=== PATIENT | female | born 1960 | race Caucasian/White ===

== ENCOUNTER → 2024-05-22 | Outpatient (CLI) | payer OTHER, SELFPAY ==
[2024-05-22 08:53] LABS: Basophils % (Auto) 0 % (0-2.5); Eosinophils # (Auto) 0.2 Thou/mm3 (0.0-0.5); Eosinophils % (Auto) 2 % (0-10); Hematocrit 34.9 % (36.0-46.0); Hemoglobin 11.6 g/dL (12.0-16.0); Immature Granulocytes % (Auto) 0 % (0-0); Immature Granulocytes Auto 0.03 Thou/mm3 (0.00-0.00); Lymphocytes # (Auto) 0.7 Thou/mm3 (1.0-4.8); Lymphocytes % (Auto) 9 % (10-50); Mean Corpuscular HGB Conc 33.2 g/dl (31.0-37.0); Mean Corpuscular Hemoglobin 30.4 pg (25.0-35.0); Mean Corpuscular Volume 92 fL (80-100); Monocytes # (Auto) 0.7 Thou/mm3 (0.0-0.8); Monocytes % (Auto) 9 % (0-12); Neutrophils # (Auto) 6.1 Thou/mm3 (1.8-7.7); Neutrophils % (Auto) 80 % (37-80); Nucleated Red Blood Cell % 0 /100 WBC (0); Platelet Count 202 Thou/mm3 (140-440); RDW Standard Deviation 42.9 fL (36.4-46.3); Red Blood Count 3.81 Miln/mm3 (4.00-5.20); White Blood Count 7.7 Thou/mm3 (3.6-11.0)
[2024-05-22 09:09] LABS: Alanine Aminotransferase 10 U/L (10-49); Albumin, Serum 4.7 gm/dL (3.4-4.8); Albumin/Globulin Ratio 2.4 (1.2-2.2); Alkaline Phosphatase 107 U/L (46-116); Anion Gap 8 (7-16); Aspartate Amino Transferase 17 U/L (0-34); BUN/Creatinine Ratio 18 Ratio (12-20); Bilirubin,Total 0.4 mg/dL (0.3-1.2); Blood Urea Nitrogen 24 mg/dL (9-23); Calcium 9.2 mg/dL (8.3-10.6); Calcium (Corrected) 9.2 mg/dL (8.5-10.1); Carbon Dioxide 26.2 mMol/L (20.0-31.0); Cardiac Risk Estimate 5.5 RATIO (3.7-5.6); Chloride 105 mMol/L (98-107); Cholesterol 241 mg/dL (132-200); Creatinine (Component) 1.3 mg/dL (0.6-1.3); Glucose 96 mg/dL (74-106); HDL Cholesterol 44 mg/dL (40-60); LDL Cholesterol,Calculated 155 mg/dL (0-130); Osmolality,Calculated 281 (275-295); Sodium 139 mMol/L (136-145); Total Protein 6.7 gm/dL (5.7-8.2); Triglycerides 209 mg/dL (30-150); eGFR 46 See Note
== END | disposition home or self-care (01) ==
LOC: SLAB 07:39
PROVIDERS: PCP Family Medicine; Referring Provider Family Medicine; Visit Provider Family Medicine
DX: I12.9 Hypertensive chronic kidney disease with stage 1 through stage 4 chronic kidney disease, or unspecified chronic kidney disease (principal); N18.2 Chronic kidney disease, stage 2 (mild); E78.2 Mixed hyperlipidemia
CPT/HCPCS: 36415; 80053; 80061; 85025

== ENCOUNTER → 2025-04-24 | Outpatient (CLI) | payer OTHER, SELFPAY ==
[2025-04-24 08:15] LABS: Alanine Aminotransferase < 7 U/L (10-49); Albumin, Serum 4.8 gm/dL (3.4-4.8); Albumin/Globulin Ratio 2.5 (1.2-2.2); Alkaline Phosphatase 103 U/L (46-116); Anion Gap 8 (7-16); Aspartate Amino Transferase 18 U/L (0-34); BUN/Creatinine Ratio 13 Ratio (12-20); Bilirubin,Total 0.5 mg/dL (0.3-1.2); Blood Urea Nitrogen 15 mg/dL (9-23); Calcium 9.6 mg/dL (8.3-10.6); Calcium (Corrected) 9.6 mg/dL (8.5-10.1); Carbon Dioxide 30.2 mMol/L (20.0-31.0); Cardiac Risk Estimate 5.0 RATIO (3.7-5.6); Chloride 104 mMol/L (98-107); Cholesterol 241 mg/dL (132-200); Creatinine (Component) 1.2 mg/dL (0.6-1.3); Globulin 1.9 gm/dL (2.3-3.5); Glucose 105 mg/dL (74-106); HDL Cholesterol 48 mg/dL (40-60); LDL Cholesterol,Calculated 155 mg/dL (0-130); Osmolality,Calculated 283 (275-295); Potassium 4.2 mMol/L (3.4-5.1); Sodium 142 mMol/L (136-145); Total Protein 6.7 gm/dL (5.7-8.2); Triglycerides 191 mg/dL (30-150); eGFR 50 See Note
== END | disposition home or self-care (01) ==
LOC: SLAB 07:18
PROVIDERS: PCP Family Medicine; Referring Provider Family Medicine; Visit Provider Family Medicine
DX: R79.9 Abnormal finding of blood chemistry, unspecified (principal)
CPT/HCPCS: 36415; 80053; 80061